=== PATIENT | female | born 2000 | race Caucasian/White ===

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

== ENCOUNTER → 2022-08-24 | Outpatient (REF) | payer OTHER, BC ==
[2022-08-24 21:44] LABS: GC DNA AMPLIFICATION NEGATIVE (NEGATIVE)
== END ==
LOC: M LABWUC 19:17
PROVIDERS: ATTEND Physician Assistant
DX: N30.01 Acute cystitis with hematuria (principal)

== ENCOUNTER 2023-07-10 16:16 | Emergency (ER) | payer BC, OTHER ==
[~2023-07-10] VITALS: Ht 162.6 cm; Wt 89.7 kg
[2023-07-10 16:30] VITALS: BP 142/78; TEMP 99.5; O2SAT 98
== END 2023-07-10 17:22 | disposition left against medical advice (07) ==
LOC: EDBD 16:16 → M ED 16:16
DX: Z53.21 Procedure and treatment not carried out due to patient leaving prior to being seen by health care provider (principal)

== ENCOUNTER 2024-09-24 12:59 | Observation (INO) | payer OTHER ==
[~2024-09-24] VITALS: Ht 162.6 cm; Wt 74.8 kg
[~2024-09-24 12:59] MED LIST: ACET1TAB55 PO; IBUP200C25 PO; UNRESOLVED CLARIFICATION ENTRY XX SCH
[2024-09-24] MEDS ORDERED: LR 1,000 ML IV SCH (13:35)
[2024-09-24] MEDS ORDERED: LIDOCAINE 2% 100MG/5ML SDV (FOR ANES.) As Ordered ONE (13:54)
[2024-09-24] MEDS ORDERED: fentaNYL 250 MCG/5 ML INJECTION As Ordered ONE (13:54)
[2024-09-24] MEDS ORDERED: ROCURONIUM BROMIDE 50MG/5ML VIAL As Ordered ONE (13:54)
[2024-09-24] MEDS ORDERED: ONDANSETRON 4MG 2ML VIAL As Ordered ONE (13:54)
[2024-09-24] MEDS ORDERED: propofoL 200 MG/20 ML VIAL As Ordered ONE (13:54)
[2024-09-24] MEDS ORDERED: MIDAZOLAM INJ 2MG/2ML VIAL As Ordered ONE (13:55)
[2024-09-24] MEDS ORDERED: dexmedeTOMIDine (4MCG/ML)200MCG/50ML BTL (PRECEDEX) As Ordered ONE (13:56)
[2024-09-24] MEDS ORDERED: ACETAMINOPHEN 1000MG/100ML IV BAG As Ordered ONE (14:04)
[2024-09-24] MEDS: GENTAMICIN SULF 80MG/2ML VIAL As Ordered ONE (14:43)
[2024-09-24] MEDS: SCOPOLAMINE 1MG TRANSDERMAL PATCH As Ordered ONE (15:07)
[2024-09-24] MEDS ORDERED: ceFAZolin SODIUM 2 GM VIAL As Ordered ONE (15:16)
[2024-09-24] MEDS: HEPARIN SOD (PORCINE) 5000UNITS/ML 1ML VIAL/SYRINGE As Ordered ONE (15:24)
[2024-09-24] MEDS: ceFAZolin SOD 2 GM IV ONCE IV ONE (15:26)
[2024-09-24] MEDS ORDERED: SUGAMMADEX SODIUM 500 MG/5 ML VIAL (BRIDION) As Ordered ONE (16:18)
[2024-09-24] MEDS ORDERED: GLYCOPYRROLATE INJ 0.2 MG/ML 2 ML VIAL As Ordered ONE (16:19)
[2024-09-24] MEDS: BUPivacaine LIPOSOME/PF 266MG 20ML VIAL (13.3MG/ML)(EXPAREL) As Ordered ONE (16:20)
[2024-09-24] MEDS ORDERED: PHENYLephrine 500MCG 5ML (100MCG/ML) SYRINGE As Ordered ONE (16:41)
[2024-09-24] MEDS ORDERED: ePHEDrine SULFATE 25 MG/5 ML(5MG/ML) SYRINGE As Ordered ONE (16:41)
[2024-09-24] MEDS ORDERED: HYDROmorphone HCL 2MG/ML 1ML VIAL As Ordered ONE (16:55)
[2024-09-24] MEDS ORDERED: METOCLOPRAMIDE INJ 10MG/2ML VIAL As Ordered ONE (16:55)
[2024-09-24] MEDS ORDERED: fentaNYL 100 MCG/2 ML INJECTION IV PRN (18:10)
[2024-09-24] MEDS ORDERED: oxyCODONE 5MG TAB PO PRN (18:10)
[2024-09-24] MEDS ORDERED: HYDROMORPHONE HCL 0.5 MG/ 0.5 ML SYRINGE IV PRN (18:10)
[2024-09-24] MEDS ORDERED: ACETAMINOPHEN 325 MG TAB PO PRN (18:50)
[2024-09-24] MEDS ORDERED: PERCOCET 5MG/325MG TAB PO PRN (18:50)
[2024-09-24] MEDS: ONDANSETRON 4MG 2ML VIAL IV PRN ×2 (19:07→23:31)
[2024-09-24] MEDS ORDERED: PROMETHAZINE 25MG/ML 1ML VIAL IV PRN (19:10)
[2024-09-24] MEDS: PROMETHAZINE 25MG/ML 1ML VIAL IV PRN (19:28)
[2024-09-24 20:45] VITALS: BP 126/76; TEMP 98.1; O2SAT 100
[2024-09-24 21:15] VITALS: BP 120/80; TEMP 97.9; O2SAT 99
[2024-09-24 22:13] VITALS: BP 117/75; TEMP 97.9; O2SAT 98
[2024-09-24] MEDS: LR 1,000 ML IV SCH ×2 (22:36→22:38)
[2024-09-24] MEDS: ceFAZolin SODIUM 2 GM in DEXTROSE 5% (D5W) ADV/MINI-BAG 50 ML IV SCH (22:37)
[2024-09-24] MEDS ORDERED: HOME MED LIST COMPLETE! XX SCH (23:10)
[2024-09-24 23:14] VITALS: BP 121/74; TEMP 98; O2SAT 99
[2024-09-25] VITALS: BP 119/79; TEMP 98.1; O2SAT 97
[2024-09-25] MEDS: traMADol 50 MG TAB PO PRN (01:49)
[2024-09-25 04:05] VITALS: BP 122/72; TEMP 98.1; O2SAT 99
[2024-09-25 08:00] VITALS: BP 119/68; TEMP 99.1; O2SAT 98
[2024-09-25] MEDS ORDERED: TRAM50TA2 PO (11:02)
== END 2024-09-25 12:15 | disposition home or self-care (01) ==
LOC: M SDC 12:59 → M RR INP 13:00 → M MS5PR 20:35
PROVIDERS: ADMIT Plastic Surgery Surgery of the Hand; ATTEND Plastic Surgery Surgery of the Hand
DX: N62 Hypertrophy of breast (principal); J30.2 Other seasonal allergic rhinitis; E78.5 Hyperlipidemia, unspecified; F41.9 Anxiety disorder, unspecified; F32.A Depression, unspecified; F12.10 Cannabis abuse, uncomplicated; Z79.899 Other long term (current) drug therapy
CPT/HCPCS: 19318; 81025; 88305; J0131; J0665; J0666; J0690; J1100; J1171; J1580; J1596; J2250; J2371; J2405; J2550; J2765; J3010